=== PATIENT | male | born 1955 | race African-American/Black ===

== ENCOUNTER → 2016-10-10 | Outpatient (CLI) | payer OTHER ==
[2014-01-23 13:26] VITALS: BP 147/91
--- NOTE | 2016-10-10 10:43 | CT ---
CT chest without contrast Indication: Left lung nodule seen on prior chest radiograph Technique: Helical CT images of the chest were obtained without contrast. Reformatted images in the coronal and sagittal planes were also generated for review. Comparison: Chest radiograph November 29, 2013 Findings: There are a few mildly prominent paratracheal and lower mediastinal lymph nodes, including a precari nal node which measures 1 cm in short axis on axial image 28, series 3. No bulky hilar adenopathy is seen. There is moderate three-vessel coronary artery atherosclerotic disease. The heart, thoracic a gucci and great vessels otherwise appear normal. There is no significant pericardial effusion. There is moderate upper lobe predominant centrilobular emphysema and mild bilateral dependent atelec tasis. Within the superior lingular segment of the left upper lobe, there is a lobulated 1.2 x 1.7 c m nodule (axial image 32, series 3) which demonstrates lobulated margins, central popcorn like calci fication as well as fat attenuation. There are 2 additional subcentimeter juxtafissural nodules with in the left lower lobe on axial image 37 and 38, series 3. No additional suspicious pulmonary nodule s or masses are identified within either lung. There is no appreciable effusion. Limited images of the upper abdomen demonstrate cholelithiasis and a small lipoma within the left po sterior chest wall. No adrenal mass lesions are seen. There is partially imaged posterior fusion naima dware within the lumbar spine and a spine stimulator at T6-T7. No aggressive osseous lesions are see n. Impression: 1. Lobulated 1.7 cm left upper lobe nodule demonstrates imaging characteristics suggestive for benig n pulmonary hamartoma. Additional juxtafissural nodules within the left lower lobe favor benign intr apulmonary lymph nodes. However, given evidence of emphysema, short interval follow-up chest CT in 3 -6 months is recommended to ensure stability. 2. Cholelithiasis and additional ancillary findings as detailed above. Reported By:
== END ==
LOC: RAD 08:53
PROVIDERS: ATTEND Nurse Practitioner Family
DX: R91.8 Other nonspecific abnormal finding of lung field (principal)
CPT/HCPCS: 71250